=== PATIENT | male | born 2000 | race Caucasian/White ===

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

== ENCOUNTER 2020-02-16 17:36 | Emergency (ER) | payer OTHER, SELFPAY ==
[~2020-02-16] VITALS: Ht 170.2 cm; Wt 68.2 kg
[~2020-02-16 17:36] MED LIST: PERC5TAB12 PO; PYRI1TAB5 PO; ZOFR4TAB14 PO
[2020-02-16 18:41] LABS: HEMATOCRIT 49.1 % (42.0-52.0); HEMOGLOBIN 16.6 g/dl (13.5-17.5); MEAN CORPUSCULAR HEMOGLOBIN 29.7 pg (27.0-33.0); MEAN CORPUSCULAR HGB CONC 33.8 g/dl (32.0-36.5); MEAN CORPUSCULAR VOLUME 87.8 fl (80.0-96.0); PLATELET COUNT, AUTOMATED 250 10^3/uL (150-450); RED BLOOD COUNT 5.59 10^6/uL (4.30-6.10)
[2020-02-16 19:13] LABS: AMPHETAMINES LEVEL URINE NEGATIVE (NEGATIVE); BARBITURATES URINE NEGATIVE (NEGATIVE); BENZODIAZEPINES URINE NEGATIVE (NEGATIVE); CANNABINOIDS URINE POSITIVE (NEGATIVE); COCAINE METABOLITE URINE NEGATIVE (NEGATIVE); METHADONE URINE NEGATIVE (NEGATIVE); OPIATES URINE NEGATIVE (NEGATIVE); PHENCYCLIDINE URINE NEGATIVE (NEGATIVE)
[2020-02-16 19:14] LABS: ACETAMINOPHEN LEVEL < 2.0 UG/ML (10.0-30.0); ALBUMIN 4.7 GM/DL (3.2-5.2); ALT/SGPT 17 U/L (12-78); BILIRUBIN,DIRECT 0.2 MG/DL (0.0-0.2); BILIRUBIN,TOTAL 0.8 MG/DL (0.2-1.0); BLOOD UREA NITROGEN 15 MG/DL (7-18); CALCIUM LEVEL 9.6 MG/DL (8.5-10.1); CARBON DIOXIDE LEVEL 29 MEQ/L (21-32); CHLORIDE LEVEL 106 MEQ/L (98-107); CREATININE FOR GFR 0.86 MG/DL (0.70-1.30); ETHYL ALCOHOL (ETHANOL) < 0.003 % (0.000-0.010); GLUCOSE, FASTING 109 MG/DL (70-100); POTASSIUM SERUM 3.8 MEQ/L (3.5-5.1); SALICYLATE LEVEL < 1.7 MG/DL (5.0-30.0); SODIUM LEVEL 138 MEQ/L (136-145); THYROID STIMULATING HORMONE 0.964 uIU/ML (0.463-3.98); TOTAL PROTEIN 7.4 GM/DL (6.4-8.2)
[2020-02-16 21:19] VITALS: BP 138/87
== END 2020-02-16 21:21 | disposition home or self-care (01) ==
LOC: M ED 17:36
DX: F33.9 Major depressive disorder, recurrent, unspecified (principal); S51.812A Laceration without foreign body of left forearm, initial encounter; X78.9XXA Intentional self-harm by unspecified sharp object, initial encounter; Y92.9 Unspecified place or not applicable
CPT/HCPCS: 36415; 80048; 80076; 80307; 84443; 85027; 99284; G0480

== ENCOUNTER → 2020-06-06 | Outpatient (CLI) | payer SELFPAY | LOC: M LABSMTC 12:08 | PROVIDERS: ATTEND Pediatrics | DX: Z20.822 Contact with and (suspected) exposure to COVID-19 (principal) ==

== ENCOUNTER 2022-06-25 15:25 | Emergency (ER) | payer SELFPAY ==
[~2022-06-25] VITALS: Ht 165.1 cm; Wt 65.1 kg
[2022-06-25 15:26] VITALS: BP 136/87
[2022-06-25] MEDS ORDERED: ONDA4TAB6 PO (17:22)
== END 2022-06-25 17:32 | disposition home or self-care (01) ==
LOC: M ED 15:25
DX: U07.1 COVID-19 (principal); F17.200 Nicotine dependence, unspecified, uncomplicated

== ENCOUNTER 2023-06-25 12:23 | Emergency (ER) | payer OTHER, SELFPAY ==
[~2023-06-25] VITALS: Ht 165.1 cm; Wt 63.2 kg
[~2023-06-25 12:23] MED LIST changes: +ONDA4TAB6 PO
[2023-06-25] MEDS ORDERED: TUMS500C PO (13:01)
[2023-06-25 13:24] LABS: BASO % 0.5 % (0.0-1.0); EOS # 0.1 10^3/uL (0.0-0.5); EOS % 0.8 % (0.0-3.0); HEMATOCRIT 50.1 % (42.0-52.0); HEMOGLOBIN 17.5 g/dl (13.5-17.5); LYMPH # 1.5 10^3/uL (1.5-5.0); LYMPH % 20.1 % (24.0-44.0); MEAN CORPUSCULAR HEMOGLOBIN 29.5 pg (27.0-33.0); MEAN CORPUSCULAR HGB CONC 34.9 g/dl (32.0-36.5); MEAN CORPUSCULAR VOLUME 84.5 fl (80.0-96.0); MONO # 0.5 10^3/uL (0.0-0.8); MONO % 6.5 % (2.0-8.0); NEUTROPHILS # 5.4 10^3/uL (1.5-8.5); NEUTROPHILS % 71.7 % (36.0-66.0); PLATELET COUNT, AUTOMATED 245 10^3/uL (150-450); RED BLOOD COUNT 5.93 10^6/uL (4.30-6.10); WHITE BLOOD COUNT 7.6 10^3/uL (4.0-10.0)
[2023-06-25 13:47] LABS: LIPASE 27 U/L (12-53)
[2023-06-25 13:48] LABS: AMYLASE 74 U/L (30-118)
[2023-06-25 13:49] LABS: ALBUMIN 4.5 G/DL (3.2-5.2); ALKALINE PHOSPHATASE 61 U/L (46-116); ALT/SGPT 11 U/L (7.0-40); AST/SGOT 10 U/L (<34); BILIRUBIN,DIRECT 0.2 MG/DL (<0.4); BILIRUBIN,TOTAL 0.5 MG/DL (0.3-1.2); BLOOD UREA NITROGEN 17 MG/DL (9-23); CALCIUM LEVEL 9.5 MG/DL (8.5-10.1); CARBON DIOXIDE LEVEL 24 MMOL/L (20-31); CHLORIDE LEVEL 104 MMOL/L (98-107); CK-MB VALUE MASS < 1.0 NG/ML (<3.6); CREATININE FOR GFR 0.81 MG/DL (0.70-1.30); GLOMERULAR FILTRATION RATE > 60.0 (>60); GLUCOSE, FASTING 90 MG/DL (60-100); POTASSIUM SERUM 4.2 MMOL/L (3.5-5.1); SODIUM LEVEL 138 MMOL/L (136-145); TOTAL PROTEIN 7.6 G/DL (5.7-8.2)
[2023-06-25 13:50] LABS: CPK CREATINE PHOSPHOKINASE 50 U/L (46-171)
[2023-06-25] MEDS ORDERED: IBUP80TA PO (15:08)
[2023-06-25 15:17] VITALS: BP 139/90; TEMP 99.4; O2SAT 97
== END 2023-06-25 15:18 | disposition home or self-care (01) ==
LOC: M ED 13:28
DX: M94.0 Chondrocostal junction syndrome [Tietze] (principal); F17.200 Nicotine dependence, unspecified, uncomplicated; F12.10 Cannabis abuse, uncomplicated; F10.10 Alcohol abuse, uncomplicated; Z79.899 Other long term (current) drug therapy; Z79.1 Long term (current) use of non-steroidal anti-inflammatories (NSAID)

== ENCOUNTER 2024-05-21 13:38 | Emergency (ER) | payer OTHER ==
[~2024-05-21] VITALS: Ht 165.1 cm; Wt 68.7 kg
[~2024-05-21 13:38] MED LIST changes: +IBUP80TA PO; +ONDA-282 PO; -ONDA4TAB6 PO; +TUMS500C PO
[2024-05-21 15:59] LABS: BASO # 0.1 10^3/uL (0.0-0.2); BASO % 0.8 % (0.0-1.0); EOS # 0.2 10^3/uL (0.0-0.5); HEMATOCRIT 47.1 % (42.0-52.0); LYMPH # 2.2 10^3/uL (1.5-5.0); LYMPH % 23.9 % (24.0-44.0); MEAN CORPUSCULAR HEMOGLOBIN 29.9 pg (27.0-33.0); MONO # 0.6 10^3/uL (0.0-0.8); MONO % 6.3 % (2.0-8.0); NEUTROPHILS # 6.1 10^3/uL (1.5-8.5); NEUTROPHILS % 66.3 % (36.0-66.0); PLATELET COUNT, AUTOMATED 221 10^3/uL (150-450); RED BLOOD COUNT 5.35 10^6/uL (4.30-6.10); WHITE BLOOD COUNT 9.1 10^3/uL (4.0-10.0)
[2024-05-21 16:24] LABS: ALBUMIN 4.3 G/DL (3.2-5.2); ALKALINE PHOSPHATASE 76 U/L (40-129); ALT/SGPT 14 U/L (7.0-40); AST/SGOT 10 U/L (<34); BILIRUBIN,TOTAL 0.3 MG/DL (0.3-1.2); BLOOD UREA NITROGEN 19 MG/DL (9-23); CALCIUM LEVEL 9.5 MG/DL (8.5-10.1); CARBON DIOXIDE LEVEL 27 MMOL/L (20-31); CHLORIDE LEVEL 108 MMOL/L (98-107); CREATININE FOR GFR 0.72 MG/DL (0.70-1.30); GLOMERULAR FILTRATION RATE > 60.0 (>60); GLUCOSE, FASTING 91 MG/DL (60-100); POTASSIUM SERUM 3.9 MMOL/L (3.5-5.1); SODIUM LEVEL 143 MMOL/L (136-145); TOTAL PROTEIN 6.9 G/DL (5.7-8.2)
[2024-05-21] MEDS: IBUPROFEN 600MG TAB PO ONE (18:38)
[2024-05-21 19:15] LABS: CK-MB VALUE MASS < 1.0 NG/ML (<3.6)
[2024-05-21 19:17] LABS: CPK CREATINE PHOSPHOKINASE 57 U/L (46-171); MB/CK RELATIVE INDEX 1.75 (< OR =4)
[2024-05-21] MEDS ORDERED: IBUP-1022 PO (20:06)
[2024-05-21 20:18] VITALS: BP 139/85; TEMP 97.5; O2SAT 98
== END 2024-05-21 20:16 | disposition home or self-care (01) ==
LOC: M ED 13:38
DX: R55 Syncope and collapse (principal); S43.402A Unspecified sprain of left shoulder joint, initial encounter; Y92.9 Unspecified place or not applicable; Y93.9 Activity, unspecified; Y99.9 Unspecified external cause status; R01.1 Cardiac murmur, unspecified; F12.10 Cannabis abuse, uncomplicated; Z79.1 Long term (current) use of non-steroidal anti-inflammatories (NSAID)